=== PATIENT | male | born 1985 | race Caucasian/White ===

== ENCOUNTER 2018-08-23 01:55 | Emergency (ER) | payer SELFPAY ==
[~2018-08-23] VITALS: Ht 190.5 cm; Wt 114.9 kg
[2018-08-23 02:13] LABS: HEMATOCRIT 50.5 % (41-53); HEMOGLOBIN 16.7 g/dL (13.5-17.5)
[2018-08-23] MEDS ORDERED: SODIUM CHLORIDE 0.9% 1,000 ML IV ONE (02:30)
[2018-08-23 02:52] VITALS: BP 160/88
[2018-08-23] MEDS ORDERED: ONDANSETRON HCL 4 MG/2 ML VIAL IVP ONE (03:00)
== END 2018-08-23 03:05 | disposition short-term general hospital (02) ==
LOC: EMS 01:56
DX: S31.829A Unspecified open wound of left buttock, initial encounter (principal); S31.819A Unspecified open wound of right buttock, initial encounter; S71.101A Unspecified open wound, right thigh, initial encounter; Z88.5 Allergy status to narcotic agent; W34.09XA Accidental discharge from other specified firearms, initial encounter; Y93.01 Activity, walking, marching and hiking; Y92.89 Other specified places as the place of occurrence of the external cause; Y99.8 Other external cause status
CPT/HCPCS: 36415; 72170; 73552; 85014; 85018; 96374; 99285; J2405; J7030